=== PATIENT | male | born 1995 ===

== ENCOUNTER 2017-05-31 19:08 | Emergency (ER) | payer MEDICARE, OTHER ==
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
[2017-05-31 21:51] VITALS: BP 127/75; PULSE 108; RESP 22; TEMP 98.6
[2017-05-31 22:00] VITALS: O2SAT 96
--- NOTE | 2017-06-01 10:05 | RAD ---
HISTORY: upper back injury COMPARISON: No prior. FINDINGS: BONES: There is normal alignment of the thoracic vertebral bodies. Thoracic kyphosis is maintained. Vertebral bodies are normal in height. There is no acute fracture. Alignment maintained. No fracture. DISC SPACES: Normal. SOFT TISSUES: Normal. OTHER FINDINGS: None. IMPRESSION: No acute fracture.
== END 2017-05-31 21:15 | disposition home or self-care (01) ==
LOC: C.ER 19:08
DX: S20.221A Contusion of right back wall of thorax, initial encounter (principal); Y04.0XXA Assault by unarmed brawl or fight, initial encounter